=== PATIENT | female | born 1980 | race Caucasian/White ===

== ENCOUNTER 2016-10-15 05:46 | Inpatient (IN) | payer OTHER ==
[2016-10-15] MEDS ORDERED: LR 1,000 ML IV SCH (05:49)
[2016-10-15] MEDS ORDERED: LR 1,500 ML IV ONE (05:49)
[2016-10-15] MEDS ORDERED: SODIUM CHLORIDE 0.9% 3 ML FLUSH FLUSH SCH ×2 (05:49→18:00)
[2016-10-15] MEDS ORDERED: SODIUM CHLORIDE 0.9% 3 ML FLUSH FLUSH PRN ×2 (05:49→08:13)
[2016-10-15] MEDS ORDERED: CEFAZOLIN 1 GM VIAL IV ONE (06:00)
[2016-10-15 06:19] LABS: AUTOMATED BASOPHIL 0.3 % (0-2); AUTOMATED EOSINOPHIL 0.4 % (0-5); AUTOMATED LYMPH 22.6 % (17-44); AUTOMATED MONOCYTE 6.8 % (3-10); AUTOMATED NEUTROPHIL 69.9 % (45-76)
[2016-10-15 06:35] VITALS: BMI 33.6
[2016-10-15] MEDS ORDERED: LABETALOL 20 MG/4 ML SYRINGE IV PRN (06:43)
[2016-10-15] MEDS ORDERED: ONDANSETRON HCL 4 MG ODT TAB PO PRN (06:43)
[2016-10-15] MEDS ORDERED: ONDANSETRON HCL 4 MG/2 ML VIAL IV PRN ×2 (06:43→08:13)
[2016-10-15] MEDS ORDERED: PROMETHAZINE 25 MG/ML VIAL IV PRN ×3 (06:43→12:45)
[2016-10-15] MEDS ORDERED: MEPERIDINE 25 MG/ML TUBEX IV PRN (06:43)
[2016-10-15] MEDS ORDERED: HYDROmorphone 1 MG INJECTION IV PRN ×2 (06:43)
[2016-10-15] MEDS ORDERED: hydrALAZINE 20 MG/ML VIAL IV PRN (06:43)
[2016-10-15] MEDS ORDERED: FENTANYL 100 MCG/2 ML VIAL IV PRN ×2 (06:43)
--- NOTE | 2016-10-15 06:43 | SC.ANESPOS ---
Post-Anesthesia Note LOC: [facility] Calling Post-Anesthesia Assessment: Awake, Returned to Baseline, Hemodynamically Stable , Pain Control Adequate Phase I & II Recovery Complete: Yes Apparent Anesthesia Complication: No : N - Vital Signs Blood Pressure: 115/57 Pulse: 83 Resp Rate: 18 O2 Sat: 98 Temp: 98.1 F
--- NOTE | 2016-10-15 06:44 | HIM.ANES ---
Anesthesia Evaluation & Plan Diagnoses: MATERNAL CARE FOR UNSP TYPE SCAR FROM PREVIOUS DEL (10/15/16) - Focused Review of Systems Cardiac History: No: Hx Cardiac Disorders HEENT: No: Other HEENT Problems Gastrointestinal: No: Hx Gastrointestinal Disorders Neurological/Musculoskeletal: No: Hx Neurological Disorders Psychological: No Hx Mental/Emotional Disorders Blood/Autoimmune: No: Hx Blood Transfusions, Hx Anemia, Hx AIDS, Hx Sickle Cell Disease Smoking Status: Never smoker Past Social History: Denies: Alcohol Use Hx Stress Test (date): No Hx Echocardiogram (date): No Hx Chest Xray (date): No Other Surgical History: OVARIAN CYST 2003 - Focused Physical Exam NPO since: MIDNIGHT Mallampati: Class II Thyromental Distance: Greater than 3 Neck: Full Range of Motion Dental: Normal - no significant findings Cardiovascular/Chest: Normal Respiratory: Lungs clear Any problems with anesthesia, including nausea and vomiting?: No (NAUSEA) Any relatives with a history of Malignant Hyperthermia?: No Beta April given (if appropriate): N/A Other: Problem List Problem Status Onset section Active CBC/BMP/Other 10/15/16 06:05 Allergies Allergy/AdvReac Type Severity Reaction Status Date / Time No Known Allergies Allergy Verified 05/05/13 03:08 Home Medications Medication Instructions Recorded Last Taken Type Vitamins, [ 1 each PO 05/05/13 10/14/16 08:00 History Vitamin] Height and Weight Patient's height 5 ft 3 in Patient's weight 215 lb BMI 33.6 Vital Signs Temperature 98.1 F 10/15/16 06:43 Pulse Rate 83 10/15/16 06:43 Respiratory Rate 18 10/15/16 06:43 Blood Pressure 115/57 L 10/15/16 06:43 Pulse Oxygen Saturation 98 10/15/16 06:43 - Anesthetic Plan Anesthesia Type: Spinal ASA Class: 2 -: I have examined this patient and reviewed the medical record. The patient has been assessed prior to anesthesia. Risks and benefits of anesthesia and anesthetic technique options have been discussed and all questions answered. The patient accepts the risk and desires me to proceed with the planned anesthetic.
[2016-10-15] MEDS ORDERED: Vaccine Screening Complete SCH ×2 (07:00→09:00)
[2016-10-15] MEDS: LR 1,000 ML IV SCH ×4 (07:05→19:50)
--- NOTE | 2016-10-15 07:13 | HISTPHYS ---
- HISTORY OF PRESENT ILLNESS Age: 36 Estimated Due Date: 10/22/16 Gestational Age: 39 : 3 Para: 2 Patient Presents to:: Labor & Delivery Presents for:: Current : No Complications, GBS + - REVIEW OF SYSTEMS Reports/Denies: Denies: Complaints Pain: Reports: None - ALLERGIES Allergies Allergy/AdvReac Type Severity Reaction Status Date / Time No Known Allergies Allergy Verified 05/05/13 03:08 - PAST MEDICAL HISTORY Reports: No Significant History - PAST SURGICAL HISTORY Reports: Section - FAMILY HISTORY Family History: Noncontributory - SOCIAL HISTORY Smoking Status: Never smoker Marital Status: Employment: Employed - GENITOURINARY HISTORY HX : 3 Para: 2 Live Deliveries (# of pregnancies resulting in a live ): 2 2 Sex: Male Weight: 7-12 Weeks Gestation: 38 1 Infant Sex: Male Weight: 8.6 Weeks Gestation: 40 - PHYSICAL EXAM Vital Signs:: Temperature: 98.1 F (10/15/16 06:43) HR: 83 (10/15/16 06:43) RR: 18 (10/15/16 06:43) BP: 115/57 (10/15/16 06:43) Pulse Ox: 98 (10/15/16 06:43) GENERAL: Alert, Oriented, No Acute Distress HEENT: Normal CARDOVASCULAR/CHEST: Normal RESPIRATORY: Normal - CTA ABDOMEN: Soft Fundal Height (cm): 39 GENITOURINARY: Normal. negative: Lesions MUSCULOSKELETAL: Normal EXTERMITIES: Moves All Extremeties. negative: Edema Heart Rate: 145 Moderate Variability Contractions: Absent Membranes: Intact - ASSESSMENT (ACTIVE PROBLEMS) (1) Term Acute Z34.80 - ENCOUNTER FOR SUPRVSN OF NORMAL , UNSP TRIMESTER (2) Previous delivery affecting Acute O34.219 - MATERNAL CARE FOR UNSP TYPE SCAR FROM PREVIOUS DEL - PLAN Admit Other Plan: 36 yo at term for repeat ltcs. Routine care. admit proceed with surgery.
[2016-10-15] MEDS ORDERED: LANOLIN OINTMENT 0.25 OZ TUBE TOP PRN (08:13)
[2016-10-15] MEDS ORDERED: OXYTOCIN 1,000 ML IV ONE (08:13)
[2016-10-15] MEDS ORDERED: OXYCODONE HCL 5 MG TABLET PO PRN (08:13)
[2016-10-15] MEDS ORDERED: ZOLPIDEM TARTRATE 5 MG TAB PO PRN (08:13)
[2016-10-15] MEDS ORDERED: HYDROmorphone 50 ML IV PRN (08:13)
--- NOTE | 2016-10-15 08:15 | OBDELNOTE ---
Delivery Note - Problem/Diagnosis (1) Term Status: Acute (2) Previous delivery affecting Status: Acute (3) delivery delivered Status: Acute (4) Single live Status: Acute - Admitting Diagnosis Reason for Visit: Admission Date: 10/15/16 Admission time: 06:22 Gestational Age: 39 - Procedures Procedure(s): Non-Stress Test Labor Anesthesia/Analgesia: Spinal Anesthesia Date: 10/15/16 Delivery Presentation: Vertex Episiotomy: None Laceration: None : Repeat, Scheduled Reason: Prior Low Transverse Section Skin Incision: Pfannenstiel Uterine Incision: Low Transverse EBL: 500 Fluid: Clear Placenta: Manual Removal Description: Normal Cord: 3 Vessels - Infant Data Infant Sex: Female Weight: 3.629 kg (1min): 8 (5min): 9 Feeding Plans for Infant: Breast Plans Circumcision: No Complications: No Complications - /Operative Complications /Op Complications: None Discharge Planning - REASON FOR ADMISSION Patient Presents to:: Labor & Delivery Reason for Visit: - DISCHARGE INSTRUCTIONS
--- NOTE | 2016-10-15 08:18 | HIMOPRPT ---
DATE OF PROCEDURE: DATE OF PROCEDURE: 10/15/16 PREOPERATIVE DIAGNOSIS: 1. Intrauterine at [39 weeks]. 2. Previous desires repeat. POSTOPERATIVE DIAGNOSIS: 1. Intrauterine at [39 weeks]. 2. Previous desires repeat. PROCEDURE: Repeat low transverse via Pfannenstiel incision. SURGEON: Teresa Iraheta MD. ANESTHESIA: [spinal] FINDINGS: Vigorous [female] , [8] pounds [0] ounces with Apgars of [8] and [9]. COMPLICATIONS: None. ESTIMATED BLOOD LOSS: 500 mL. URINE OUTPUT: [250] mL of clear urine. PROCEDURE IN DETAIL: Patient was taken to the operating room, anesthesia found be adequate. She was prepped and draped in a usual sterile fashion with left lateral tilt. A Pfannenstiel incision was made with scalpel, carried down to the fascia. The fascia was nicked in midline and the incision extended laterally with Benjamin scissors. The fascia was elevated up, dissected off rectus muscles. Rectus muscles were in midline, peritoneum was identified and entered. Peritoneal incision was extended superiorly and inferiorly with good visualization of bladder. Bladder flap was created with blunt sharp dissection. The lower uterine segment was incised in transverse fashion with scalpel extended bluntly. 's head was delivered atraumatically. The nose and mouth were suctioned bulb suction. Cord clamped and cut and infant handed off to awaiting nursery personnel. Placenta was removed. The uterus was exteriorized and cleared of all clots. The uterine incision was closed with #1 chromic at this time. The uterus was returned to the abdomen. Hemostasis verified. Clots removed from the gutters. The fascia was closed with 0 PDS. Subcuticular fat was closed with 0 plain gut suture Skin was closed with 4-0 monocryl in subcuticular fashion. Dermabond was applied to the skin site. Sponge, laps, and counts correct x2. The patient tolerated well. ANESTHESIA: Spinal Anesthesia
--- NOTE | 2016-10-15 08:19 | PCM.DCS92 ---
- Primary/Secondary Discharge Diagnoses (1) Term Acute Z34.80 - ENCOUNTER FOR SUPRVSN OF NORMAL , UNSP TRIMESTER (2) Previous delivery affecting Acute O34.219 - MATERNAL CARE FOR UNSP TYPE SCAR FROM PREVIOUS DEL (3) delivery delivered Acute O82 - ENCOUNTER FOR DELIVERY WITHOUT INDICATION (4) Single live Acute Z37.0 - SINGLE LIVE - HOSPITAL COURSE /Op Complications: None - DISCHARGE INSTRUCTIONS Discharge Disposition: Home Discharge Condition: Good Cognitive Discharge Status: Unimpaired Fuctional Discharge Status: Independent Patient Leaving with Prescriptions?: Yes Prescriptions: Ibuprofen Tablet [Motrin] 800 mg PO TID #30 tab Oxycodone Immediate Release [Oxycodone Immediate Release Tablet] 5 mg PO Q4H PRN #30 tab PRN Reason: Pain Referrals: Teresa Iraheta MD [Staff Physician] - Two Weeks - Diet Diet at Discharge: Regular - Activity Activity: No Heavy Lifting, Pelvic Rest, No Driving No Driving for: 2 weeks - Instructions Call Physician for: Sudden/Sever Chest Pain, Foul Smelling Discharge, Pain/ Redness in Calf/Leg, Temperature Above 100.4, Drainiage from Wound - DC Summary Notes Discharge Medications: *See "Discharge Medication List" for a complete list of Home Medications and Discharge Medications.* Obstetric Hospital Course - Admitting Diagnosis Reason for Visit: Admission Date: 10/15/16 Admission time: 06:22 Gestational Age: 39 - Procedures Procedure(s): Non-Stress Test Labor Anesthesia/Analgesia: Spinal Anesthesia Date: 10/15/16 Delivery Presentation: Vertex Episiotomy: None Laceration: None : Repeat, Scheduled for: Previous Uterine Surgery Skin Incision: Pfannenstiel Uterine Incision: Low Transverse EBL: 500 Fluid: Clear Placenta: Manual Removal Description: Normal Cord: 3 Vessels - Data Infant Sex: Female Weight: 3.629 kg (1min): 8 (5min): 9 Feeding Plans for Infant: Breast Plans Circumcision: No Complications: No Complications - /Operative Complications /Op Complications: None
[2016-10-15] MEDS ORDERED: Pharmacy Order Set Alert SCH (09:00)
[2016-10-15] MEDS ORDERED: HYDROmorphone 2 MG/ML VIAL IM ONE (10:00)
[2016-10-15] MEDS ORDERED: PHENYLEPHRINE 10 MG/ML VIAL IC ONE (10:00)
[2016-10-15] MEDS ORDERED: OXYTOCIN 10 UNITS/ML VIAL IM ONE (10:00)
[2016-10-15] MEDS ORDERED: MIDAZOLAM 2 MG/2 ML VIAL IV ONE (10:00)
[2016-10-15] MEDS ORDERED: BUPIVACAINE 0.75%/DEXTROSE 8.25% AMPULE EPI ONE (10:00)
[2016-10-15] MEDS: IBUPROFEN 800 MG TAB PO SCH ×3 (10:03→23:49)
[2016-10-15] MEDS ORDERED: RHo(D) IMMUNE GLOBULIN (HUMAN) 300 MCG SYRINGE IM ONE ×2 (17:52→19:00)
[2016-10-16] MEDS: LR 1,000 ML IV SCH (03:53)
[2016-10-16] MEDS: IBUPROFEN 800 MG TAB PO SCH ×3 (06:29→17:26)
[2016-10-16] MEDS ORDERED: SODIUM CHLORIDE 0.9% 3 ML FLUSH FLUSH PRN (08:02)
--- NOTE | 2016-10-16 08:03 | OBGYNPROG ---
- Subjective Post Day: 1 Post Op Day: 1 Reports: Ambulating, Out of Bed, Tolerating Regular Diet, Light Bleeding. Denies: Complaints Pain: Reports: Incision - Objective Vital Signs: Temperature: 97.9 F (10/16/16 06:27) HR: 69 (10/16/16 06:27) RR: 18 (10/16/16 06:27) BP: 110/55 (10/16/16 06:27) Pulse Ox: 98 (10/15/16 15:05) Laboratory Results - last 24 hr 10/15/16 10/15/16 10/16/16 06:05 06:05 06:30 Hgb 11.5 L D Hct 32.7 L RPR Nonreactive Blood Type A NEGATIVE Antibody Screen Negative General: Alert, Oriented, No Acute Distress HEENT: Normal Cardiovascular/Chest: Normal ABDOMEN: Soft Abdominal Incision: Incision Clean/Dry/Intact MUSCULOSKELETAL: Normal EXTERMITIES: Moves All Extremeties. Denies: Edema OBGYN Progress Note - ASSESSMENT (1) Term Status: Acute Code(s): Z34.80 - ENCOUNTER FOR SUPRVSN OF NORMAL , UNSP TRIMESTER (2) Previous delivery affecting Status: Acute Code(s): O34.219 - MATERNAL CARE FOR UNSP TYPE SCAR FROM PREVIOUS DEL (3) delivery delivered Status: Acute Code(s): O82 - ENCOUNTER FOR DELIVERY WITHOUT INDICATION (4) Single live Status: Acute Code(s): Z37.0 - SINGLE LIVE - PLAN Routine Care, Advance Diet, Ambulate, Discontinue Indwelling Catheter , Out of Bed, Discontinue AMBULATORY ANALYST, Start PO Meds
[2016-10-16] MEDS: DOCUSATE-SENNA CONCENTRATE TAB PO SCH ×2 (08:30→22:30)
[2016-10-16] MEDS: OXYCODONE HCL 5 MG TABLET PO PRN (10:19)
[2016-10-16] MEDS ORDERED: SODIUM CHLORIDE 0.9% 3 ML FLUSH FLUSH SCH (18:00)
[2016-10-17] MEDS: IBUPROFEN 800 MG TAB PO SCH ×2 (00:19→06:11)
[2016-10-17 05:48] VITALS: BP 103/57; PULSE 67; TEMP 97.8
[2016-10-17] MEDS: OXYCODONE HCL 5 MG TABLET PO PRN (08:10)
--- NOTE | 2016-10-17 11:16 | OBGYNPROG ---
- Subjective Post Op Day: 2 Reports: Ambulating, Tolerating Regular Diet, Voiding Freely, Passing Flatus, Moderate Lochia. Denies: Complaints Pain: Reports: Well Managed - Objective Vital Signs: Temperature: 97.8 F (10/17/16 05:47) HR: 67 (10/17/16 05:47) RR: 18 (10/17/16 05:47) BP: 103/57 (10/17/16 05:47) Pulse Ox: 98 (10/15/16 15:05) General: Alert, Oriented, No Acute Distress Respiratory: Normal - CTA. negative: Rales, Rhonchi, Wheezes ABDOMEN: Bowel Sounds Present, Non-Distended, Soft, Tender (Appropriately) Abdominal Incision: Incision Clean/Dry/Intact Fundus: At Umbilicus, Firm Lochia: Moderate Bladder: Voiding & Emptying EXTERMITIES: Moves All Extremeties. Denies: Pain/Tenderness OBGYN Progress Note - ASSESSMENT (1) delivery delivered Status: Acute Code(s): O82 - ENCOUNTER FOR DELIVERY WITHOUT INDICATION Comment: Doing well, requesting discharge - PLAN Discharge (Precautions and restrictions discussed.)
== END 2016-10-17 10:41 | disposition home or self-care (01) | DRG 766 ==
LOC: MASU 05:46 → EDSTATUS 07:15
PROVIDERS: ADMIT Obstetrics & Gynecology; ATTEND Obstetrics & Gynecology
PROC: 10D00Z1 Extraction of Products of Conception, Low, Open Approach (ICD-10-PCS; principal; 2016-10-15 07:15)
DX: O34.211 Maternal care for low transverse scar from previous cesarean delivery (principal); O99.824 Streptococcus B carrier state complicating childbirth; Z3A.39 39 weeks gestation of pregnancy; Z37.0 Single live birth
CPT/HCPCS: 59025; 85014; 85018; 85025; 85461; 86592; 86850; 86900; 86901; 96360; 96361; 96365; 96366; 96372; 96375; J0690; J1170; J2250; J2370; J2405; J2550; J2590; J2790; J3490; S0020